=== PATIENT | male | born 1955 | race Caucasian/White ===

== ENCOUNTER 2023-03-09 03:42 | Inpatient (IN) | payer MEDICARE, SELFPAY ==
[2023-03-09] VITALS (57 sets, daily range): BP systolic 100–176; BP diastolic 55–86; PULSE 47–112; RESP 10–20; TEMP 36.3–37.2; O2SAT 84–98; BMI 29.2
[2023-03-09] MEDS: HYDROmorphone 1 mg/mL INJ 1 mL 2 MG IVP ×2 (05:08→18:19)
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
--- NOTE | 2023-03-09 06:57 | P.PN_ITS ---
Subjective Subjective: No change in the status Medications: Medication Review Details: Medication reviewed with [facility] physician Vitals/I&O/Wt Last Vital Signs Temp 98.1 F 03/09/23 04:00 Pulse 73 03/09/23 04:00 Resp 17 03/09/23 05:08 BP 131/71 03/09/23 04:00 Pulse Ox 94 03/09/23 04:00 O2 Del Method Room Air 03/09/23 04:10 03/08/23 03/08/23 03/09/23 14:59 22:59 06:59 Output Total 150 / 150 Balance -150 / -150 Weight last 48 hrs Weight 103.147 kg Physical Exam Narrative: Physical exam unchanged Data Other Labs: Labs reviewed with [facility] physician A&P Assessment and plan (1) Left displaced femoral neck fracture: Plan Patient to go for surgery with Dr. Egan. He is n.p.o. for now He is physically and medically in sound state of health with moderate risk for corrective surgery for left femoral neck fracture Attestations Medical Necessity Statement*: He needs continued hospitalization for more than 2 days post corrective surgery Time Spent in Patient Care: 5 minutes Coding Level of Care Code Acute Code for Chg Fwd Diagnoses Left displaced femoral neck fracture S72.002A Time Spent (min) 5
[2023-03-09 07:36] LABS: Basophils # 0.1 10^3/uL (0.0-0.1); Eosinophils # 0.4 10^3/uL (0.0-0.8); Eosinophils % 4.6 %; Hematocrit 43.4 % (37-53); Lymphocytes # 0.9 10^3/uL (0.8-4.8); Lymphocytes % 11.4 %; Mean Corpuscular HGB Conc 33.2 g/dL (30-55); Mean Corpuscular Hemoglobin 31.7 pg (27-33); Mean Corpuscular Volume 95.6 fl (82-101); Mean Platelet Volume 11.2 fL (7.4-10.4); Monocytes # 0.5 10^3/uL (0.2-0.9); Monocytes % 6.7 %; Neutrophils # 5.91 10^3/uL (1.8-7.7); Neutrophils % 75.9 %; Nucleated Red Blood Cells % 0 %; Platelet Count 107 10^3/cmm (157-399); Red Blood Count 4.54 10^6/uL (3.85-5.65); Red Cell Distribution Width 14.2 % (12.1-15.1); White Blood Count 7.79 10^3/uL (3.29-11.43)
[2023-03-09 07:50] LABS: INR 1.21 (0.8-1.2); Partial Thromboplastin Time 31.6 SECONDS (23.9-36.7)
[2023-03-09 07:55] LABS: Alanine Aminotransferase < 5 U/L (0-41); Alkaline Phosphatase 96 U/L (40-130); Aspartate Amino Transferase 22 U/L (0-40); Blood Urea Nitrogen 12 mg/dL (8-23); Calcium 8.6 mg/dL (8.5-10.5); Carbon Dioxide 24 mmol/L (22-29); Chloride 104 mmol/L (98-107); Glomerular Filtration Rate 96.4 mL/min (90-130); Glucose 108 mg/dL (65-115); Magnesium 1.9 mg/dL (1.7-2.3); Osmolality Calculated 286 mOsm/kg (285-295); Sodium 138 mmol/L (136-145); Total Bilirubin 2.2 mg/dL (0.15-1.2)
[2023-03-09] MEDS: sodium chloride 0.9% 1,000 ML 75 ML IV ×2 (08:08→19:00)
[2023-03-09] MEDS: famotidine 20 mg/2 mL INJ IVP ×2 (08:08→17:35)
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
[2023-03-09 08:49] LABS: Add Urine Microscopic? NO; Charge for UA Resulting for Rev
--- NOTE | 2023-03-09 08:51 | PC.NURSE ---
0826 Pt was taken down to surgery. was informed by departmental secretary to go to outpatient waiting room to wait for the surgery.
[2023-03-09] MEDS: ketorolac 30 mg/mL INJ IVP (08:53)
--- NOTE | 2023-03-09 08:54 | W.PM.OPSUD ---
Surgery/Procedure H&P Update DATE OF PROCEDURE: March 09, 2023 DATE H&P PERFORMED: 03/09/23 CHANGES TO PREVIOUS DOCUMENTATION: None. No change in HPI visit from consult note today this morning. Patient has a valgus impacted femoral neck fracture CT scan reviewed and demonstrates this is amenable alignment for closed reduction percutaneous pinning. Talked about treatment options he understands risk benefits complication alternatives of surgery elects proceed with surgical intervention of the left hip CRPP. All questions answered. Will return to the floor postoperatively. PREOP DIAGNOSIS: Left femoral neck fx PRIMARY INDICATION FOR PROCEDURE: Left femoral neck fracture PLANNED PROCEDURE: Operation Date: 03/09/23 09:30 Proposed Procedures p Left Hip Femoral Neck closed reduction and percutaneous pinning(Left) - Conner Egan DO
[2023-03-09] MEDS: acetaminophen 1,000 MG/100 ML PIGGYBACK 400 MG IV (08:55)
--- NOTE | 2023-03-09 09:01 | ANES.PREANE2 ---
Pre-Anesthetic Assessment Height/Weight: Height 1.88 m Weight 103.147 kg Temp Pulse Resp BP Pulse Ox O2 Del Method 98.2 F 81 16 176/86 92 Room Air 03/09/23 07:54 03/09/23 08:49 03/09/23 08:49 03/09/23 08:49 03/09/23 08:49 03/09/23 08:49 Preop Diagnosis: Left femoral neck fx Operation Date: 03/09/23 09:30 Proposed Procedures p Left Hip Femoral Neck closed reduction and percutaneous pinning(Left) - Conner Egan DO Familial anesthetic complications: None Was Beta Zofia taken within 24 hours: Yes Was Clonidine taken within 24 hours: N/A Last intake: Intake Last Liquid Date 03/08/23 Last Liquid Time 23:59 Last Solid Date 03/07/23 Last Solid Time 23:59 Social Tobacco and No alcohol Exam alert, oriented x 3, clear to auscultation bilaterally and regular rate & rhythm Airway Mallampati: Class II Dentition: chipped CV/HEM Hypertension Hepatic Hepatitis GI Gastroesophageal Reflux Disease Neuropsych parkinsons Anesthetic Plan ASA status: 3 Anesthesia: General Risk of > 500 ml blood loss (7ml/kg in children): No Medications/Allergies Home Medications Medication Instructions Recorded Confirmed Last Taken Type Unable to Assess 03/09/23 03/09/23 Unknown History Allergies Allergy/AdvReac Type Severity Reaction Status Date / Time No Known Allergies Allergy Verified 03/09/23 03:50 Current Medications Generic Name Dose Route Start Last Admin Trade Name Freq PRN Reason Stop Dose Admin Famotidine 20 mg 03/09/23 06:15 03/09/23 08:08 Famotidine 20 Mg/2 Ml Inj IVP 20 mg Q12H TAISHA Administration Hydromorphone HCl 2 mg 03/09/23 04:19 03/09/23 05:08 Hydromorphone 1 Mg/Ml Inj 1 Ml IVP 2 mg Q4H PRN Administration PAIN Sodium Chloride 1,000 mls @ 75 mls/hr 03/09/23 06:15 03/09/23 08:08 Sodium Chloride 0.9% IV 75 mls/hr .[id number] TAISHA Administration Additional Medication Information Medication reviewed with [facility] physician [facility] Anesthesia Medical History (Updated 03/09/23 @ 06:09 by Brii Fleming MD) Cirrhosis of liver Hepatitis Parkinson disease Surgical History (Updated 03/09/23 @ 06:09 by Brii Fleming MD) S/P deep brain stimulator placement Family History Mother Cancer Social History Smoking and tobacco status: never smoked Second hand smoke exposure: No Smoking risk assessment/counseling performed?: No Alcohol intake: former Desire information about alcohol rehabilitation?: No Counseling given: No Substance/Drug Use: current Substance/Drug use frequency: daily Substance/Drug use type: Marijuana Desire information about substance/drug rehabilitation?: No Counseling given: No Lives independently: Yes Household members: spouse Housing: House Marital status: Data Anesthesia 03/09/23 07:17 03/09/23 07:17 Short CBC 03/09/23 Range/Units 07:17 WBC 7.79 (3.29-11.43) 10^3/uL Hgb 14.40 (11.27-16.99) g/dL Hct 43.4 (37-53) % MCV 95.6 (82-101) fl Plt Count 107 L (157-399) 10^3/cmm Neut % (Auto) 75.9 % Neut # (Auto) 5.91 (1.8-7.7) 10^3/uL BMP 03/09/23 07:17 Sodium 138 Potassium 4.0 Chloride 104 Carbon Dioxide 24 BUN 12 Creatinine 0.8 Glucose 108 Calcium 8.6 Liver Function 03/09/23 Range/Units 07:17 Total Bilirubin 2.2 H (0.15-1.2) mg/dL AST 22 (0-40) U/L ALT < 5 (0-41) U/L Alkaline Phosphatase 96 (40-130) U/L Albumin 4.0 (3.5-5.2) g/dL Coags 03/09/23 07:17 PT 15.70 H INR 1.21 H APTT 31.6 Cardiac Studies: No Data to Display
[2023-03-09] MEDS: ceFAZolin 2,000 MG in sodium chloride 0.9% (plus) 50 ML 100 MG IV ×2 (09:10→16:46)
[2023-03-09 09:18] LABS: Urine Appearance Clear (CLEAR); Urine Color Orange (Yellow); pH Urine 5 (5-7)
[2023-03-09 09:19] LABS: Bilirubin Urine 1+ (Negative); Blood Urine Neg (Negative); Glucose Urine UA Norm (Normal); Ketones Urine 1+ (Negative); Leukocyte Esterase Urine Negative (Negative); Nitrate Urine Negative (Negative); Protein Urine Neg (Negative); Urobilinogen Urine 4 mg/dL (Negative)
[2023-03-09] MEDS: ROPivacaine 0.5% SDV 30 mL 50 MG INJECTION (09:57)
[2023-03-09] MEDS: lidocaine 2% INJ 20 mL 10 ML INJECTION (09:59)
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
--- NOTE | 2023-03-09 10:27 | PM.OP2 ---
Brief Operative Note Date of procedure: 03/09/23 Pre-op diagnosis: Left femoral neck fracture Post-op diagnosis: same Procedure Done: Left hip femoral neck closed reduction and percutaneous pinning Surgeon: Conner Egan Estimated blood loss (mL): 5 Complications: none Post-op Plan: Plan: -Hospitalist is on board for medical management -Partial weightbearing as tolerated about 38 to 50% to the operative extremity -Ice as needed for pain and swelling -Encourage knee and hip range of motion as tolerated -PT/OT -Pain control -DVT prophylaxis -Lovenox for blood clot prevention -Leave Silverlon dressings on and in place for 7 days. After this they may be removed you may shower/rinse incisions with warm soapy water, pat dry redress with a dry dressing. Okay to sponge bath/shower with Silverlon dressings as they should be waterproof however if they do get saturated or wet please take these off dry the incision and redressed with a new dry sterile bandage. Condition: stable Disposition: PACU Coding Level of Care Code Acute Code for [facility]
--- NOTE | 2023-03-09 10:27 | PM.OP ---
Operative Report Date of procedure: March 09, 2023 Surgeon: Conner Egan DO Procedure: Post-op diagnosis: Same Procedure done: [Left]?femoral neck closed reduction and percutaneous screw fixation Implants: 6.5 mm x [105]?mm ?partially threaded?cannulated screw 6.5 mm x [95]?mm partially-threaded cannulated screw 6.5 mm x [100]?mm partially-threaded cannulated screw [3]?washers Surgeon: Conner Egan DO Petrophysicist: Parrish Egan PA-C Anesthesia: General Estimated blood loss: [5] mL IV fluids: [500] mL Urine output: [50]?mL Complications: None Findings: See operative report narrative Condition: stable Disposition: floor Brief?History: Patient is a [67]-year-old [male]who sustained a fall had a valgus impacted left femoral neck. Seen in outside facility transferred to [facility] for care. Patient?admitted by hospitalist team medically optimized, orthopedics was consulted For treatment recommendations.?Patient has been medically optimized.? We talked about treatment options given this after CT scan demonstrated an intact anterior cortex in good alignment I feel this would be amendable for closed reduction and percutaneous pinning fixation.? We talked about this in detail as far as risk benefits complication alternatives of surgery understands even potential for possible hardware failure and further surgery.? Understand risk of surgery they agree to proceed with surgical intervention all questions answered. Procedure: Patient seen and evaluated?in the preoperative holding area.? Consent was reviewed and signed with patient.? Operative extremity was marked.? Patient was then seen evaluated by anesthesia once cleared for surgery patient was taken back to the operative suite.? Patient was transported onto the [place] bed after undergoing general anesthetic.? Once properly anesthetized she was then placed onto the [place] bed placed in traction boots.? All bony prominences well-padded patient was appropriate secured to the bed.? Final timeout was performed.? Patient received appropriate preoperative antibiotics as well as preoperative TXA. Prior to prepping and draping, the fractured?hip was then inspected this was found to be on the traction table to be in excellent alignment position amenable for close reduction percutaneous pinning.? At this point time the [left]hip was then prepped and draped in standard orthopedic fashion. I started off with small percutaneous incision after marking the center center position of the femoral neck I started with my inferior and central calcar wire.? Guidepin was then advanced along the inferior border of the neck and advanced to appropriate position into the femoral head across the fracture site.? This was confirmed in multiple orthogonal images to be in appropriate position.? Next I plan for a inverted triangle configuration as result I then subsequently placed next my superior and anterior guidepin in appropriate position and then in parallel fashion placed my posterior and superior guidepin in appropriate position.? This was confirmed to have an excellent inverted triangle positioning on AP and lateral.? I then advanced the wires to appropriate length and then subsequently measured.? I then utilized the cannulated drill bit, Drilled, measured and then subsequently advanced the partially-threaded 6.5 mm x [105]?mm cannulated screw, washer and advanced this with excellent fixation on the inferior and central calcar screw. Next, we did the?Superior and posterior pin,?utilized the cannulated drill bit and subsequently drilled, measured and placed a partially-threaded 6.5 mm x [ 95]?mm partially-threaded cannulated screw with washer.? All 3 screws had excellent fixation and were advanced appropriate depth. ? Lastly attention turned to the?superior and anterior?pin,?I then subsequently used the cannulated drill bit And subsequently drilled,?measured and placed a partially-threaded 6.5 mm x [100]?mm partially-threaded cannulated screw and washer and had excellent fixation.?? At the end the procedure I backed the wires out to have appropriate visualization of the tips of the screws.? I then unlocked the traction boot and took the?hip through range of motion with live fluoroscopic imaging utilizing approach and withdrawal technique and no screws penetrated the joint and fracture site was stable.? This completed the procedure. Guidepins were then subsequently removed wound was then thoroughly irrigated and closed with joss for the small percutaneous sites.? This was then covered with Silverlon dressing.? Patient was then awake from anesthesia and taken to PACU in stable condition.? Patient tolerated procedure without any issues Disposition: Patient taken to PACU in stable condition recovering well.? Will be partial weightbearing 30 to 50% postoperatively.? Dressing on in place will be changed as needed.? DVT prophylaxis.? Pain control.? PT/OT.? Postoperative TXA. Postoperative antibiotics.?Patient will return to the floor.? Internal medicine on board as primary.?
--- NOTE | 2023-03-09 10:32 | PM.PACU ---
PACU note Narrative: Patient is a 67-year-old male that had a left femoral neck fracture and just underwent a left hip femoral neck closed reduction and percutaneous pinning. Pt transferred to PACU in stable condition. dressing is dry. pt is awake delirious and confused. He was trying to get out of bed but was stabilized and contained with hospital staff and security staff member. Pt can wiggle toes and plantarflex and dorsiflex foot. pt able to perform straight leg raise, Femoral nerve intact. Distal pulses are palpable toes are warm and well-perfused. Cap refill is normal and under 2 seconds. Sensation to foot is intact. Pain is controlled. Exam: awake Disposition: discharged
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
[2023-03-09] MEDS: midazolam 1 mg/mL INJ 2 mL 2 MG IVP ×2 (10:49→13:08)
[2023-03-09] MEDS: midazolam 1 mg/mL INJ 2 mL 2 MG (11:06)
[2023-03-09] MEDS: dexmedetomidine 400 MCG in sodium chloride 0.9% (100 ml) 100 ML 8.05 MCG IV (11:20)
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
--- NOTE | 2023-03-09 11:50 | PC.OT ---
OT will hold on eval until 03/10/2023 due to ICU transfer and Code 10 called to this patients room.
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
[2023-03-09 12:34] LABS: Ammonia 69 umol/L (16-60)
--- NOTE | 2023-03-09 12:37 | XRR_ITS ---
PROCEDURE INFORMATION: Exam: XR Left Femur Exam date and time: 03/09/2023 6:57 PM Age: 67 years old Clinical indication: Other: Post op pinning; Prior surgery; Surgery date: Post-operative (0-2 days); Surgery type: Hip pinning today; Patient HX: F/u post op hip pinning; Additional info: Left hip fem neck crpp TECHNIQUE: Imaging protocol: Radiologic exam of the left femur. Views: 2 views. COMPARISON: CR (PELVIS, ) 03/09/2023 6:54 PM FINDINGS: Bones/joints: There are 3 partially threaded screws placed through the left femoral head and neck transfixing a subcapital left hip fracture. Fracture components appear in good alignment and apposition. Hardware is intact. Remainder of visualized osseous structures are unremarkable. Soft tissues: Unremarkable. XR/XR femur LT min 2V* [id number] IMPRESSION: Internally fixed subcapital left hip fracture in good alignment.
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
[2023-03-09] MEDS: LORazepam 2 mg/mL INJ 1 mL ×2 (13:01→13:02)
[2023-03-09] MEDS: LORazepam 2 mg/mL INJ 1 mL IVP ×2 (13:02)
[2023-03-09] MEDS: ziprasidone 20 mg/mL SDV 10 MG IM ×2 (13:03→13:04)
[2023-03-09] MEDS: water for injection-sterile 10 ML 100 ML (13:04)
[2023-03-09 13:06] LABS: Alcohol Level < 10 mg/dL (0-10)
[2023-03-09] MEDS: morphine 4 mg/mL SDV 1 mL IVP (13:06)
[2023-03-09 14:18] LABS: Amphetamines Screen Urine Negative (Negative); Barbiturates Screen Urine Negative (Negative); Benzodiazepines Screen Urine Positive (Negative); Cocaine Screen Urine Negative (Negative); Opiate Screen Urine Positive (Negative); PCP Screen Urine Negative (Negative); THC Screen Urine Positive (Negative)
--- NOTE | 2023-03-09 14:41 | PC.NURSE ---
1100 Recieved patient via bed from surgery, patient resting mostly but occasionally arouses and says profanity and throws covers off of him. Dressing on left hip dry and intact with small amount of bruising near edge of dressing. Iv of NS infusing into right forearm. We had to let him settle down and stop tearing off his monitor leads to reattach leads and monitor vitals. Only complaint was that he want to pee, we continually informed him that he has a catheter and it is draining his urine but makes him feel the need to go, but just cussed us out for not letting him go pee. 1110 Patient setteled down somewhat where I could get monitor leads on him. 1120 Patient aroused and again wanting up to go pee, started pulling off all leads, dislodged IV in right forearm, pulled SCD's off and combative with anyone who tried to stop him from removing all his wires and keep him in bed. 1125 Code 10 called to get assistance in keeping him in the bed. 1135 Dr. Trent at bedside, ordered to just turn the Presedex up to 1.2 as ordered. More anxiety meds ordered. 1150 Patient calming down, did place patient in 4 point restraints as ordered until patient relax down.
--- NOTE | 2023-03-09 14:53 | PC.NURSE ---
[address] via bed with monitor and O2 on at 4l nc. Patient sedated and tolerating movement well. No c/o's. Removed leg restraints.
--- NOTE | 2023-03-09 15:11 | PC.NURSE ---
1300 Read patient rights to him and provided paperwork of 96 hour hold. Attempted to try to call numerous times by two different nurses. Was not allowed to leave a message.
[2023-03-09] MEDS: dexmedetomidine 400 MCG in sodium chloride 0.9% (100 ml) 100 ML 21.46 MCG IV (15:53)
[2023-03-09 17:35] LABS: Thyroid Stimulating Hormone 6.15 uIU/mL (0.27-4.20)
--- NOTE | 2023-03-09 18:30 | PC.NURSE ---
1814 Left hip surgical area is now swollen significantly, very small amout of blood drainage on dressing, marked edge. Called Dr. Parrish Egan and notified, says will come look at it. Notified Dr. Wong, ordered H&H stat. Holding enema.
[2023-03-09 19:11] LABS: Hematocrit 41.8 % (37-53)
[2023-03-09] MEDS: lactulose oral liq 20 gm/30 mL UDC 200 GM PR (20:04)
[2023-03-09 21:09] LABS: Adenovirus Not Detected (NOT DETECT); Chlamydia Pneumoniae Not Detected (NOT DETECT); Coronavirus 229E,HKU1,NL63,OC4 Not Detected (NOT DETECT); Human Metapneumovirus Not Detected (NOT DETECT); Human Rhinovirus/Enterovirus Not Detected (NOT DETECT); Influenza A Not Detected (NOT DETECT); Influenza A H1 Not Detected (NOT DETECT); Influenza A H1-2009 Not Detected (NOT DETECT); Influenza A H3 Not Detected (NOT DETECT); Influenza B Not Detected (NOT DETECT); Mycoplasma Pneumoniae Not Detected (NOT DETECT); Parainfluenza Virus Type 1 Not Detected (NOT DETECT); Parainfluenza Virus Type 2 Not Detected (NOT DETECT); Parainfluenza Virus Type 3 Not Detected (NOT DETECT); Parainfluenza Virus Type 4 Not Detected (NOT DETECT); Respiratory Syncytial Virus A Not Detected (NOT DETECT); Respiratory Syncytial Virus B Not Detected (NOT DETECT); SARS-COV-2 Not Detected (NOT DETECT)
--- NOTE | 2023-03-09 21:12 | PC.NURSE ---
Rectal Tube/Lactulose Enema: Rectal tube inserted @ approximately 1999. See MAR for lactulose administration. Pt is resting in bed, snoring, w/ even/unlabored respirations. Pt opens his eyes to pain and occasionally mumbles.
[2023-03-09] MEDS: enoxaparin 40 mg/0.4 mL Syringe SUBCUT (23:03)
[2023-03-10] VITALS (95 sets, daily range): BP systolic 105–187; BP diastolic 59–97; PULSE 44–100; RESP 10–22; TEMP 37.2; O2SAT 90–97
[2023-03-10] MEDS: ceFAZolin 2,000 MG in sodium chloride 0.9% (plus) 50 ML 100 MG IV (00:31)
[2023-03-10] MEDS: ketorolac 30 mg/mL INJ 15 MG IVP (01:22)
[2023-03-10] MEDS: lactulose oral liq 20 gm/30 mL UDC 200 GM PR ×2 (01:52→10:35)
--- NOTE | 2023-03-10 02:16 | PC.NURSE ---
Pt awoke spontaneously and was able to tell this RN his name and birthday. Pt was reoriented to place and situation. Pt expressed remorse, stating multiple times, I'm sorry I'm so much trouble , I can't believe I acted like that , and please forgive me . Care agreement to trial removal of restraints if pt agrees to not pull at any of this lines. Pt verbalized agreement.
[2023-03-10] MEDS: LORazepam 2 mg/mL INJ 1 mL IVP ×5 (03:14→21:17)
[2023-03-10 05:07] LABS: Basophils % 0.3 %; Eosinophils % 0.1 %; Hematocrit 40.8 % (37-53); Lymphocytes # 0.6 10^3/uL (0.8-4.8); Lymphocytes % 7.6 %; Mean Corpuscular HGB Conc 32.6 g/dL (30-55); Mean Corpuscular Hemoglobin 31.4 pg (27-33); Mean Corpuscular Volume 96.5 fl (82-101); Mean Platelet Volume 11.6 fL (7.4-10.4); Monocytes # 0.5 10^3/uL (0.2-0.9); Neutrophils # 6.42 10^3/uL (1.8-7.7); Neutrophils % 85.7 %; Nucleated Red Blood Cells % 0 %; Platelet Count 70 10^3/cmm (157-399); Red Blood Count 4.23 10^6/uL (3.85-5.65); Red Cell Distribution Width 13.6 % (12.1-15.1); White Blood Count 7.49 10^3/uL (3.29-11.43)
[2023-03-10 05:24] LABS: Alanine Aminotransferase 16 U/L (0-41); Albumin Level 3.3 g/dL (3.5-5.2); Alkaline Phosphatase 80 U/L (40-130); Aspartate Amino Transferase 20 U/L (0-40); Blood Urea Nitrogen 16 mg/dL (8-23); Calcium 8.2 mg/dL (8.5-10.5); Carbon Dioxide 22 mmol/L (22-29); Chloride 109 mmol/L (98-107); Globulin 2.7 g/dL (1.3-4.6); Glomerular Filtration Rate 112.5 mL/min (90-130); Glucose 113 mg/dL (65-115); Osmolality Calculated 292 mOsm/kg (285-295); Sodium 140 mmol/L (136-145)
[2023-03-10 05:26] LABS: Anion Gap 13.3 (5-19); Potassium 4.3 mmol/L (3.5-5.1)
[2023-03-10] MEDS: famotidine 20 mg/2 mL INJ IVP ×2 (05:26→17:34)
[2023-03-10 05:39] LABS: Hepatitis A Antibody IgM Non-Reactive (Nonreactive); Hepatitis B Core AB, Total Non-Reactive (Nonreactive); Hepatitis B Surface AB 3.5 (11.5-1000); Hepatitis B Surface Antigen Non-Reactive (Nonreactive)
[2023-03-10 06:11] LABS: Hepatitis C Virus Antibody Reactive (Nonreactive)
--- NOTE | 2023-03-10 08:23 | PC.NURSE ---
CODE 10 Pt very quickly became agitated and not able to redirect. Pt was yelling at staff accusations that were not reasonable with blunt profanity. Pt was standing, yelling and pulling at all lines and tubes including guadalupe and rectal tube. Pt trying to hit other staff and becoming more aggressive. Code 10 called. Code 10 team responded. Pt was prn ativan and precedex restarted. pt was calmed down by staff. Pt returned to bed.
--- NOTE | 2023-03-10 09:07 | P.PN_ITS ---
Reviewed and agree with PAs assessment and plan. I did see and evaluate patient as well he still on Precedex due to his agitation postoperatively still in the ICU. He still has restraints on plantar-grade at this point time he is unarousable on my examination his hip dressings clean dry and intact his toes are warm well perfused with cap refill less than 2 seconds we will follow sergio ent for an additional day tomorrow and then plan for likely sign off tomorrow. Patient will be partial weightbearing 30 to 50%. Follow-up in the office in 2 weeks. Conner Egan DO Subjective Subjective: Patient is 1 day POD from left femoral neck closed reduction and percutaneous screw fixation. patient is an ICU and is still confused and delirious. They had to call a code 10 last night because patient was getting aggressive. Nurse changed bandage yesterday and applied a pressure dressing over surgical site. No other acute concerns. Vitals/I&O/Wt Last Vital Signs Temp 97.8 F 03/09/23 21:00 Pulse 90 03/10/23 08:00 Resp 15 03/10/23 07:45 BP 108/59 03/10/23 08:00 Pulse Ox 94 03/10/23 08:00 O2 Del Method Room Air 03/10/23 06:30 O2 Flow Rate 2 03/10/23 02:15 03/09/23 03/10/23 03/10/23 22:59 06:59 14:59 Intake Total 576.076 / 682.349 583.397 / 1265.746 Output Total 1000 / 1130 275 / 1405 Balance -423.924 / -447.651 308.397 / -139.254 Weight last 48 hrs Weight 227 lb 6.4 oz Physical Exam Narrative: Patient is alert but seems confused and delirious. He gets agitated and thinks that people are trying to hurt patient while here in the ICU. Further exam limited due to altered mental status. Const: COMMON NORMALS: alert Resp: COMMON NORMALS: normal respiratory effort EFFORT & INSPECTION: No respiratory distress Extremity: NARRATIVE EXTREMITY EXAM: Left hip and lower leg?no obvious deformity and no leg shortening or external rotation seen. Neurovascular intact distally with pedal pulse of 2+, toes are warm and well-perfused and normal cap refill under 2 seconds. Patient can dorsiflex and plantarflex foot. Pressure dressing on and intact Neuro: SENSORIUM/ORIENTATION: Yes alert Urinary Catheter Management: Carmona: Cath Placed During This Visit: yes Reason for Continuing Indwelling Catheter: Accurate Measurement of Urinary Output in Critically Ill Patients Urinary Catheter Date of Insertion: 03/09/23 Urinary Catheter Time of Insertion: 08:35 Data 03/10/23 03:55 03/10/23 03:55 Xray Ortho: My impression: [address] [address] XRay Report Signed Patient: Narendra Carmichael Unit #: [id number] : 1955 Age/Sex: 67 / M ADM Date: 03/09/23 Loc: ICU Room/Bed: [place] [address]: Ruth Valencia MD Ordering Provider/Ordering MD: Conner Egan Date of Service: 03/09/23 Procedure(s): XR femur LT min 2V* [id number] Accession Number(s): [id number] Report Number: [id number] PROCEDURE INFORMATION: Exam: XR Left Femur Exam date and time: 03/09/2023 6:57 PM Age: 67 years old Clinical indication: Other: Post op pinning; Prior surgery; Surgery date: Post-operative (0-2 days); Surgery type: Hip pinning today; Patient HX: F/u post op hip pinning; Additional info: Left hip fem neck crpp TECHNIQUE: Imaging protocol: Radiologic exam of the left femur. Views: 2 views. COMPARISON: CR (PELVIS, ) 03/09/2023 6:54 PM FINDINGS: Bones/joints: There are 3 partially threaded screws placed through the left femoral head and neck transfixing a subcapital left hip fracture. Fracture components appear in good alignment and apposition. Hardware is intact. Remainder of visualized osseous structures are unremarkable. Soft tissues: Unremarkable. XR/XR femur LT min 2V* [id number] IMPRESSION: Internally fixed subcapital left hip fracture in good alignment. ? Dictated By: Kye Brian MD Signed By: Kye Brian MD Signed Date/Time: 03/09/231916 DD/ 56 A&P Assessment and plan (1) Left displaced femoral neck fracture: (2) Acute delirium: Plan Plan: -Hospitalist on board for medical management and acute delirium -Labs and imaging reviewed -Partial weightbearing as tolerated about 30% to 50% to the operative extremity -Walker as needed to assist with ambulation -Ice as needed for pain and swelling -Leave pressure Dressing on -Encourage knee and hip range of motion as tolerated -PT/OT -Pain control -DVT prophylaxis -Lovenox for blood clot prevention We will reevaluate patient tomorrow. Attestations Medical Necessity Statement*: Ongoing care from left femoral neck fracture Coding Level of Care Code Acute Code for Chg Fwd Diagnoses Left displaced femoral neck fracture S72.002A Acute delirium R41.0
--- NOTE | 2023-03-10 09:30 | PC.OT ---
No OT performed per information from ICU nurse stating patient is combative at this time.
[2023-03-10] MEDS: ceFAZolin 2,000 MG in sodium chloride 0.9% (plus) 50 ML 50 MG IV (10:06)
[2023-03-10] MEDS: ziprasidone 20 mg/mL SDV 10 MG IM (10:07)
[2023-03-10] MEDS: water for injection-sterile 10 ML (10:07)
[2023-03-10] MEDS: OLANZapine 5 mg ODT PO (10:08)
[2023-03-10] MEDS: sodium chloride 0.9% 1,000 ML 75 ML IV (10:32)
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
[2023-03-10] MEDS: lactulose oral liq 20 gm/30 mL UDC NG-TUBE ×2 (15:00→21:09)
[2023-03-10] MEDS: HYDROmorphone 1 mg/mL INJ 1 mL 2 MG IVP (15:00)
[2023-03-10] MEDS: acetaminophen 500 mg Tablet 1000 MG PO (17:33)
[2023-03-10] MEDS: calcium carb-vit d 600mg/400unit 1 Tablet 1 EACH PO (17:33)
[2023-03-10] MEDS: mupirocin oint 22 gm 1 APPLIC NASAL (17:34)
--- NOTE | 2023-03-10 19:00 | PC.NURSE ---
NG Tube: NG tube present on arrival to shift in [facility]. Gastric Tube Management added to worklist. X-ray imaging not in chart. Dr. Fleming contacted.
--- NOTE | 2023-03-10 20:12 | PC.NURSE ---
Precedex Titration: Per shift report w/ NIKITA Llamas 400mcg bag of Precedex infused on dayshift and pt was switched to 1000mcg bag of Precedex. On arrival to shift 1000mcg bag of Precedex is running @0.4mcg/kg/hr. MAR titrated for 1900 to reflect 400mcg bag was infused on dayshift and 1000cmg bag is currently running @0.4mcg/kg/hr. See IV Titratable Assessment for Precedex titration.
--- NOTE | 2023-03-10 20:39 | PC.NURSE ---
Crackles in Lungs: Crackles noted in bilateral lungs on assessment. Dr. Fleming notified @2037. New order for 40mg IVP Lasix NOW.
[2023-03-10] MEDS: FUROsemide 10 mg/mL SDV 4mL 40 MG IVP (21:02)
[2023-03-10] MEDS: enoxaparin 40 mg/0.4 mL Syringe SUBCUT (23:01)
--- NOTE | 2023-03-10 23:23 | XRR_ITS ---
PROCEDURE INFORMATION: Exam: XR Chest Exam date and time: 03/11/2023 12:00 AM Age: 67 years old Clinical indication: Device placement; Ng tube; Prior surgery; Surgery date: 6+ months; Surgery type: Pacer; Patient HX: Check S/P ng placement; Additional info: Confirm ng placement TECHNIQUE: Imaging protocol: Radiologic exam of the chest. Views: 1 view. COM[place] [id number] 03/09/2023 12:59 PM FINDINGS: Tubes, catheters and devices: Left-sided stimulator device demonstrated. Lungs: Minimal atelectasis versus nonspecific infiltrate at the left lung base. The lungs are otherwise clear. Pleural spaces: No pleural effusion. No pneumothorax. Heart/Mediastinum: Calcified mediastinal lymph nodes consistent with old granulomatous disease. No cardiomegaly demonstrated. Bones/joints: Degenerative thoracic spine changes. No acute abnormality. XR/XR chest 1V portable [id number] IMPRESSION: 1. Minimal atelectasis versus nonspecific infiltrate at the left lung base. The lungs are otherwise clear. 2. Findings of old granulomatous disease are identified.
[2023-03-10] MEDS: dexmedetomidine 400 MCG in sodium chloride 0.9% (100 ml) 100 ML 10.73 MCG IV (23:48)
[2023-03-11] VITALS (99 sets, daily range): BP systolic 115–181; BP diastolic 65–118; PULSE 48–105; RESP 8–26; TEMP 36.8–37.8; O2SAT 92–99
[2023-03-11] MEDS: acetaminophen 500 mg Tablet 1000 MG PO ×3 (01:02→17:08)
[2023-03-11] MEDS: lactulose oral liq 20 gm/30 mL UDC NG-TUBE ×4 (02:26→22:58)
[2023-03-11] MEDS: morphine 4 mg/mL SDV 1 mL IVP ×2 (02:51→20:03)
[2023-03-11 04:34] LABS: Basophils % 0.6 %; Eosinophils # 0.2 10^3/uL (0.0-0.8); Eosinophils % 4.1 %; Lymphocytes # 0.8 10^3/uL (0.8-4.8); Lymphocytes % 16.1 %; Mean Corpuscular HGB Conc 33.3 g/dL (30-55); Mean Corpuscular Hemoglobin 31.6 pg (27-33); Mean Corpuscular Volume 94.9 fl (82-101); Monocytes # 0.4 10^3/uL (0.2-0.9); Monocytes % 7.1 %; Neutrophils # 3.53 10^3/uL (1.8-7.7); Neutrophils % 71.9 %; Nucleated Red Blood Cells % 0 %; Platelet Count 70 10^3/cmm (157-399); Red Blood Count 4.11 10^6/uL (3.85-5.65); Red Cell Distribution Width 13.7 % (12.1-15.1); White Blood Count 4.91 10^3/uL (3.29-11.43)
[2023-03-11 04:57] LABS: Ammonia 72 umol/L (16-60)
[2023-03-11] MEDS: LORazepam 2 mg/mL INJ 1 mL IVP ×3 (05:04→21:13)
[2023-03-11 05:09] LABS: Alanine Aminotransferase 15 U/L (0-41); Albumin Level 3.4 g/dL (3.5-5.2); Alkaline Phosphatase 75 U/L (40-130); Anion Gap 14.5 (5-19); Aspartate Amino Transferase 20 U/L (0-40); Blood Urea Nitrogen 15 mg/dL (8-23); Calcium 8.2 mg/dL (8.5-10.5); Carbon Dioxide 25 mmol/L (22-29); Chloride 108 mmol/L (98-107); Free T4 Free Thyroxine 1.17 ng/dL (0.82-1.77); Globulin 2.8 g/dL (1.3-4.6); Glomerular Filtration Rate 112.5 mL/min (90-130); Glucose 115 mg/dL (65-115); Osmolality Calculated 300 mOsm/kg (285-295); Potassium 3.5 mmol/L (3.5-5.1); Sodium 144 mmol/L (136-145); T3 Free 3.2 PG/ML (2.0-4.4); Total Bilirubin 1.1 mg/dL (0.15-1.2); Total Protein 6.2 g/dL (6.6-8.7)
[2023-03-11] MEDS: haloperidol inj 5 mg/mL INJ 1 mL 2 MG IVP (05:29)
[2023-03-11] MEDS: HYDROmorphone 1 mg/mL INJ 1 mL 2 MG IVP (05:34)
--- NOTE | 2023-03-11 05:43 | PC.NURSE ---
Aggression: Pt awoke extremely confused and agitated. Pt was kicking his legs out of the bed, pulling at restraints, and screaming that he had been kidnapped. Attempted verbal intervention. Pt continued to scream that he was going home and that we were all bitches . Pt states your holding me against my will and your a sneaky bitch . Asked pt if he was hurting, pt responded, don't you fucking think so . Pain medication given. Security @bedside. See MAR for medication administration.
[2023-03-11] MEDS: sodium chloride 0.9% 1,000 ML 50 ML IV (06:05)
[2023-03-11] MEDS: famotidine 20 mg/2 mL INJ IVP ×2 (06:07→18:19)
[2023-03-11] MEDS: calcium carb-vit d 600mg/400unit 1 Tablet 1 EACH PO ×2 (08:26→18:19)
[2023-03-11] MEDS: multivitamin therapeutic Tablet 1 TAB PO (08:26)
[2023-03-11] MEDS: OLANZapine 5 mg ODT PO ×2 (08:26→17:08)
--- NOTE | 2023-03-11 09:25 | PC.OT ---
Patient medicated this date. Will hold therapy and check tomorrow.
[2023-03-11 10:21] LABS: Erythrocyte Sedimentation Rate 13 mm/hr (0-10)
[2023-03-11 10:23] LABS: C Reactive Protein 32.4 mg/L (0.0-4.9)
[2023-03-11 10:24] LABS: Alcohol Level < 10 mg/dL (0-10)
[2023-03-11 10:30] LABS: Procalcitonin 0.06 ng/mL (0-0.5)
[2023-03-11] MEDS: carbidopa-levodopa 25-100mg Tablet 1 EACH PO ×3 (11:30→23:10)
--- NOTE | 2023-03-11 12:03 | XR_ITS ---
WS: [id number] Exam: XR chest 1V portable [id number] Date/Time of Exam: 03/11/2023 12:03 PM Reason For Exam: fever ams Comparison with the latest exam on the same day at 12:06 a.m. The lungs are clear and fully inflated. No pleural effusions. Normal cardiomediastinal silhouette. An NG tube extends into the stomach. A left-sided neurostimulator noted with leads extending toward the RIGHT and LEFT neck. Bony structures are intact. IMPRESSION: 1. No acute cardiopulmonary finding. No significant change.
--- NOTE | 2023-03-11 12:03 | XR_ITS ---
WS: [id number] Exam: XR KUB portable [id number] Date/Time of Exam: 03/11/2023 12:03 PM Reason For Exam: ams, fever Scattered gas in large and small bowel loops suggesting mild ileus. No sign of acute bowel obstructio n. No free air identified. Organ margins are obscured. An enteric tube is noted in the region of the gastric antrum. Bony elements are intact as visualized. IMPRESSION: 1. Scattered large and small bowel gas suggesting mild ileus. No acute abdominal process is suspected . 2. Enteric tube probably ending in the expected region of the gastric antrum or proximal duodenum.
--- NOTE | 2023-03-11 12:03 | CT_ITS ---
WS: [id number] CT HEAD NONCONTRAST HISTORY: ams TECHNIQUE: Contiguous axial imaging performed through the brain in 2.5 mm imaging. Bone and soft tiss ue windows. Sagittal and coronal reformats reviewed. All CT scans at [facility] use at least one of these dose optimization techniques: automated exposure control; mA and/or kV adjustment per pa tient size (includes targeted exams where dose is matched to clinical indication); or iterative recon struction. DLP: 1333.35 mGy.cm COMPARISON: 03/09/2023. Reidentified are bilateral neural stimulators terminating near the substantia nigra. Bilateral symmet susy placement. No complications. Moderate atrophy and small vessel ischemic disease as noted on the prior study. There is artifact fro m the stimulators to the parenchyma but no acute hemorrhage or sulcal effacement appreciated. No inferior displacement of the cerebellar tonsils. Ventricles: Normal size with no hydrocephalus. Patient is intubated. Paranasal sinuses: As visualized are clear. Mastoid air cells: Well pneumatized. Calvarium and scalp: Bifrontal julio holes for the stimulator placement. IMPRESSION: 1. Stable noncontrast head CT. No edema or acute blood. 2. No change in position of the bilateral neural stimulators terminate near the substantia nigra.
[2023-03-11 14:03] LABS: Bilirubin Urine 1+ (Negative); Blood Urine 2+ (Negative); Glucose Urine UA Norm (Normal); Ketones Urine 1+ (Negative); Nitrate Urine Negative (Negative); Protein Urine Neg (Negative); Specific Gravity, Urine 1.015 (1.005-1.030); Urine Appearance SL Hazy (CLEAR); Urine Color Yellow (Yellow); pH Urine 5 (5-7)
[2023-03-11 14:04] LABS: Add Urine Microscopic? YES; Leukocyte Esterase Urine Trace (Negative); Urobilinogen Urine 8 mg/dL (Negative)
[2023-03-11 14:05] LABS: Bacteria Urine TRACE /hpf; Mucus Urine 1+ /hpf
[2023-03-11 14:06] LABS: Add Urine Culture? No
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
[2023-03-11] MEDS: cefTRIAXone 1,000 MG in sodium chloride 0.9% (plus) 50 ML 100 MG IV (15:45)
[2023-03-11] MEDS: dextrose 5%-sod chloride 0.9% 1,000 ML 75 ML IV (15:45)
--- NOTE | 2023-03-11 17:43 | PC.NURSE ---
Addendum entered by Konstantin Rivera RN 03/11/23 18:36: Shift SUmmary: About an hour after writing the amended note (see below), patient's mental status had greatly improved. He now recognizes his , is calm, and more easily redirected. HOwever, he is still confused and at times pulling at lines and being impulsive. Original Note: Shift SUmmary: Uneventful shift. Patient stayed in bed throughout the day. Precedex weaned off. Mental status has improved compared to previous attempts to wean off of precedex, but still altered. Patient doesn't know where he is, the year, or situation. He will occaisonally answer his name correctly, but usually reacts to any questions with hostility. Occasionally correctly remembers the circumstances that led to his hospitalization. Occaisonally yells out for help saying he has been kidnapped. Does not recognize who is at bedside. Previous days when attempting to wean from precedex he has become violent and was unable to be reasoned with, today he nurse has been able to verbally redirect and though easily agitated, he has not attempted to harm any staff. Patient remains in restraints as he is still a danger to himself, attempting to pull out guadalupe cathers, IVs, monitoring devices, and trying to get out of bed when he is too weak to safely do so. Total urine output has been 400mL. 5 loose bowel movements today.
[2023-03-11 18:46] LABS: Glucose Point of Care 116 mg/dL (70-110)
[2023-03-11 19:36] LABS: Adenovirus Not Detected (NOT DETECT); Chlamydia Pneumoniae Not Detected (NOT DETECT); Coronavirus 229E,HKU1,NL63,OC4 Not Detected (NOT DETECT); Human Metapneumovirus Not Detected (NOT DETECT); Human Rhinovirus/Enterovirus Not Detected (NOT DETECT); Influenza A Not Detected (NOT DETECT); Influenza A H1 Not Detected (NOT DETECT); Influenza A H1-2009 Not Detected (NOT DETECT); Influenza A H3 Not Detected (NOT DETECT); Influenza B Not Detected (NOT DETECT); Mycoplasma Pneumoniae Not Detected (NOT DETECT); Parainfluenza Virus Type 1 Not Detected (NOT DETECT); Parainfluenza Virus Type 2 Not Detected (NOT DETECT); Parainfluenza Virus Type 3 Not Detected (NOT DETECT); Parainfluenza Virus Type 4 Not Detected (NOT DETECT); Respiratory Syncytial Virus A Not Detected (NOT DETECT); Respiratory Syncytial Virus B Not Detected (NOT DETECT); SARS-COV-2 Not Detected (NOT DETECT)
--- NOTE | 2023-03-11 20:20 | PM.PN ---
Subjective Subjective: Patient seen and examined this evening at bedside patient is recovering well. Pressure dressings removed cleaned sterile dry dressings on in place. Patient still in ICU but is more alert and less agitated today. No new issues or complaints at this time. Vitals/I&O/Wt Last Vital Signs Temp 99.3 F 03/11/23 17:30 Pulse 77 03/11/23 18:30 Resp 18 03/11/23 20:03 BP 145/81 03/11/23 18:30 Pulse Ox 96 03/11/23 20:03 O2 Del Method Room Air 03/11/23 18:30 O2 Flow Rate 1 03/11/23 09:30 03/11/23 03/11/23 03/11/23 06:59 14:59 22:59 Intake Total 282.590 / 1681.844 106.304 / 106.304 493.580 / 599.884 Output Total 2600 / 3050 275 / 275 125 / 400 Balance -2317.410 / -1368.156 -168.696 / -168.696 368.580 / 199.884 Physical Exam Narrative: Patient is alert but seems confused and delirious. No agitation today. Still in the ICU. Const: COMMON NORMALS: alert Resp: COMMON NORMALS: normal respiratory effort EFFORT & INSPECTION: No respiratory distress Extremity: NARRATIVE EXTREMITY EXAM: Left hip and lower leg?no obvious deformity and no leg shortening or external rotation seen. Neurovascular intact distally with pedal pulse of 2+, toes are warm and well-perfused and normal cap refill under 2 seconds. Patient can dorsiflex and plantarflex foot. Dressings on in place is clean dry and intact. Patient is able to perform straight leg raise with no pain Neuro: SENSORIUM/ORIENTATION: Yes alert Urinary Catheter Management: Carmona: Cath Placed During This Visit: yes Reason for Continuing Indwelling Catheter: Accurate Measurement of Urinary Output in Critically Ill Patients Urinary Catheter Date of Insertion: 03/09/23 Urinary Catheter Time of Insertion: 08:35 Data 03/11/23 04:20 03/11/23 04:20 Micro: Microbiology 03/11/23 10:10 Blood Culture - Preliminary Blood SPECIMEN COLLECTED 03/11/23 10:05 Blood Culture - Preliminary Blood SPECIMEN COLLECTED A&P Assessment and plan (1) Left displaced femoral neck fracture: (2) Acute delirium: Plan CleanedPlan: -Hospitalist on board for medical management and acute delirium -Labs and imaging reviewed -Partial weightbearing as tolerated about 30% to 50% to the operative extremity -Walker as needed to assist with ambulation -Ice as needed for pain and swelling -Dressing changed and intact -Encourage knee and hip range of motion as tolerated -PT/OT -Pain control -DVT prophylaxis -Lovenox for blood clot prevention Orthopedic surgery team will sign off patient at this time follow peripherally if there is any questions pertaining to patient's care for free to contact orthopedic surgery (Dr. Egan). Orthopedic discharge instructions as well as pain medication DVT prophylaxis in patient's chart for discharge. We will follow-up in the orthopedic office in 2 weeks. Attestations Medical Necessity Statement*: Ongoing care from left femoral neck fracture Coding Level of Care Code Acute Code for Chg Fwd Diagnoses Left displaced femoral neck fracture S72.002A Acute delirium R41.0 Time Spent (min) 15
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
[2023-03-11] MEDS: enoxaparin 40 mg/0.4 mL Syringe SUBCUT (23:12)
[2023-03-12] VITALS (86 sets, daily range): BP systolic 126–181; BP diastolic 66–122; PULSE 55–98; RESP 10–33; TEMP 36.8–37.2; O2SAT 91–99
[2023-03-12] MEDS: haloperidol inj 5 mg/mL INJ 1 mL 2 MG IVP (00:25)
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
[2023-03-12] MEDS: acetaminophen 500 mg Tablet 1000 MG PO ×3 (01:18→17:34)
[2023-03-12] MEDS: lactulose oral liq 20 gm/30 mL UDC NG-TUBE ×4 (03:29→20:26)
[2023-03-12] MEDS: OLANZapine 5 mg ODT PO (03:32)
--- NOTE | 2023-03-12 04:39 | PC.NURSE ---
NIH: Unable to complete NIH scale. Pt was resting w/ eyes closed and appeared calm for the first time this shift. Awoke pt for NIH and pt became agitated extremely quickly, kicking legs out. Pt will no follow commands needed to complete stoke scale at this time.
[2023-03-12] MEDS: dextrose 5%-sod chloride 0.9% 1,000 ML 75 ML IV ×2 (05:08→18:42)
[2023-03-12] MEDS: carbidopa-levodopa 25-100mg Tablet 1 EACH PO ×4 (05:12→23:36)
[2023-03-12] MEDS: famotidine 20 mg/2 mL INJ IVP ×2 (05:15→17:34)
[2023-03-12 05:19] LABS: Basophils # 0.1 10^3/uL (0.0-0.1); Basophils % 1.1 %; Eosinophils # 0.2 10^3/uL (0.0-0.8); Eosinophils % 4.4 %; Hematocrit 37.5 % (37-53); Lymphocytes # 0.9 10^3/uL (0.8-4.8); Mean Corpuscular HGB Conc 32.8 g/dL (30-55); Mean Corpuscular Hemoglobin 31.5 pg (27-33); Mean Corpuscular Volume 95.9 fl (82-101); Mean Platelet Volume 10.6 fL (7.4-10.4); Monocytes # 0.4 10^3/uL (0.2-0.9); Monocytes % 8.1 %; Nucleated Red Blood Cells % 0 %; Platelet Count 66 10^3/cmm (157-399); Red Blood Count 3.91 10^6/uL (3.85-5.65); Red Cell Distribution Width 13.6 % (12.1-15.1); White Blood Count 4.55 10^3/uL (3.29-11.43)
[2023-03-12 05:39] LABS: Alanine Aminotransferase 9 U/L (0-41); Albumin Level 3.2 g/dL (3.5-5.2); Alkaline Phosphatase 82 U/L (40-130); Aspartate Amino Transferase 34 U/L (0-40); Blood Urea Nitrogen 10 mg/dL (8-23); Calcium 7.9 mg/dL (8.5-10.5); Carbon Dioxide 25 mmol/L (22-29); Chloride 107 mmol/L (98-107); Globulin 2.5 g/dL (1.3-4.6); Glomerular Filtration Rate 165.9 mL/min (90-130); Glucose 135 mg/dL (65-115); Magnesium 1.5 mg/dL (1.7-2.3); Osmolality Calculated 289 mOsm/kg (285-295); Sodium 139 mmol/L (136-145); Total Bilirubin 2.1 mg/dL (0.15-1.2); Total Protein 5.7 g/dL (6.6-8.7)
[2023-03-12 05:46] LABS: Anion Gap 10.2 (5-19); Potassium 3.2 mmol/L (3.5-5.1)
[2023-03-12 05:48] LABS: Ammonia 62 umol/L (16-60)
[2023-03-12 05:57] LABS: Slide Review Slide Review Perform
[2023-03-12] MEDS: multivitamin therapeutic Tablet 1 TAB PO (08:40)
[2023-03-12] MEDS: calcium carb-vit d 600mg/400unit 1 Tablet 1 EACH PO ×2 (08:40→17:34)
[2023-03-12] MEDS: magnesium sulfate premix 2 GM/50 ML PIGGYBACK IV (08:41)
[2023-03-12] MEDS: dexmedetomidine 400 MCG in sodium chloride 0.9% (100 ml) 100 ML 13.41 MCG IV (08:42)
[2023-03-12] MEDS: lidocaine 1% 5 ML in potassium chloride premix 100 ML 26.25 ML IV (08:42)
[2023-03-12] MEDS: mupirocin oint 22 gm 1 APPLIC NASAL (08:42)
--- NOTE | 2023-03-12 11:35 | PC.SOCIAL ---
IMM update IMM updated with patient's . Copy Pg 2 at bedside. Verbalized an understanding. Initialled, dated, timed, and placed in chart.
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
[2023-03-12] MEDS: vancomycin 1,500 MG/300 ML PIGGYBACK 200 MG IV ×2 (13:00→20:24)
[2023-03-12] MEDS: meropenem 1,000 MG in sodium chloride 0.9% (plus) 50 ML 100 MG IV ×2 (13:00→20:20)
--- NOTE | 2023-03-12 14:33 | PC.OT ---
Patient still remains not appropriate for OT services
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
[2023-03-12] MEDS: oxyCODONE 5 mg IR Tab/Cap PO (17:33)
--- NOTE | 2023-03-12 19:15 | PC.NURSE ---
Shift summary: Weaned off of precedex. Alert to person, place, time, and situation but still confused. Near end of shift he has been calm and cooperative and restraints were removed. WOrk with PT briefly and was able to stand at the side of the bed.
[2023-03-12] MEDS: enoxaparin 40 mg/0.4 mL Syringe SUBCUT (22:10)
[2023-03-12 23:04] LABS: HEP C RNA Viral Load Quant <1.18 DETECTED Log IU/mL (NOT DETECTED); HEP C RNA Viral Load Quant <15 DETECTED IU/mL (NOT DETECTED)
[2023-03-13] VITALS (19 sets, daily range): BP systolic 150–170; BP diastolic 76–105; PULSE 70–96; RESP 18–38; TEMP 36.4–36.8; O2SAT 94–98
[2023-03-13] MEDS: lactulose oral liq 20 gm/30 mL UDC NG-TUBE ×2 (02:37→08:15)
[2023-03-13] MEDS: meropenem 1,000 MG in sodium chloride 0.9% (plus) 50 ML 100 MG IV (03:01)
[2023-03-13] MEDS: vancomycin 1,500 MG/300 ML PIGGYBACK 200 MG IV (03:45)
[2023-03-13] MEDS: carbidopa-levodopa 25-100mg Tablet 1 EACH PO ×4 (04:36→23:22)
[2023-03-13 05:10] LABS: Basophils % 0.5 %; Eosinophils # 0.4 10^3/uL (0.0-0.8); Eosinophils % 6.4 %; Hematocrit 37.9 % (37-53); Lymphocytes # 0.8 10^3/uL (0.8-4.8); Lymphocytes % 13.2 %; Mean Corpuscular HGB Conc 34.3 g/dL (30-55); Mean Corpuscular Hemoglobin 31.6 pg (27-33); Mean Corpuscular Volume 92.2 fl (82-101); Mean Platelet Volume 10.9 fL (7.4-10.4); Monocytes # 0.5 10^3/uL (0.2-0.9); Monocytes % 8.1 %; Neutrophils % 71.3 %; Nucleated Red Blood Cells % 0 %; Platelet Count 91 10^3/cmm (157-399); Red Blood Count 4.11 10^6/uL (3.85-5.65); Red Cell Distribution Width 13.7 % (12.1-15.1)
[2023-03-13] MEDS: famotidine 20 mg/2 mL INJ IVP (05:19)
[2023-03-13 05:28] LABS: C Reactive Protein 43.9 mg/L (0.0-4.9)
[2023-03-13 05:29] LABS: Alanine Aminotransferase 8 U/L (0-41); Albumin Level 3.2 g/dL (3.5-5.2); Alkaline Phosphatase 94 U/L (40-130); Anion Gap 12.6 (5-19); Aspartate Amino Transferase 29 U/L (0-40); Blood Urea Nitrogen 6 mg/dL (8-23); Calcium 8.3 mg/dL (8.5-10.5); Carbon Dioxide 23 mmol/L (22-29); Chloride 109 mmol/L (98-107); Globulin 2.8 g/dL (1.3-4.6); Glomerular Filtration Rate 134.4 mL/min (90-130); Glucose 110 mg/dL (65-115); Magnesium 1.7 mg/dL (1.7-2.3); Osmolality Calculated 290 mOsm/kg (285-295); Phosphorus 2.5 mg/dL (2.5-4.5); Potassium 3.6 mmol/L (3.5-5.1); Sodium 141 mmol/L (136-145); Total Bilirubin 1.8 mg/dL (0.15-1.2)
[2023-03-13 05:31] LABS: Ammonia 23 umol/L (16-60)
[2023-03-13 05:35] LABS: Procalcitonin 0.07 ng/mL (0-0.5)
[2023-03-13 05:37] LABS: Slide Review Slide Review Perform
--- NOTE | 2023-03-13 07:00 | XR_ITS ---
WS: [id number] Exam: XR chest 1V portable [id number] Date/Time of Exam: 03/13/2023 6:51 AM Reason For Exam: sob Comparison 03/11/2023. The lungs are clear and fully expanded. Normal cardiomediastinal silhouette. No pleural effusions. Fredy ny structures are intact. Again noted is a neurostimulator pack superimposing the region of the LEFT shoulder. An enteric tube appears to enter the stomach but the tip is not visible. IMPRESSION: 1. No acute cardiopulmonary finding. No change.
[2023-03-13] MEDS: mupirocin oint 22 gm 1 APPLIC NASAL ×2 (08:14→18:12)
[2023-03-13] MEDS: multivitamin therapeutic Tablet 1 TAB PO (08:14)
[2023-03-13] MEDS: acetaminophen 500 mg Tablet 1000 MG PO ×2 (08:14→18:07)
[2023-03-13] MEDS: docusate sodium 100 mg Capsule PO ×2 (08:14→18:09)
[2023-03-13] MEDS: calcium carb-vit d 600mg/400unit 1 Tablet 1 EACH PO ×2 (08:14→18:09)
[2023-03-13] MEDS: dextrose 5%-sod chloride 0.9% 1,000 ML 75 ML IV (08:15)
[2023-03-13] MEDS: ketorolac 30 mg/mL INJ 15 MG IVP (09:17)
[2023-03-13 11:33] LABS: Vancomycin Trough 14.8 ug/mL (10-15)
[2023-03-13] MEDS: LORazepam 2 mg/mL INJ 1 mL IVP (12:03)
[2023-03-13] MEDS: oxyCODONE 5 mg IR Tab/Cap PO (12:30)
--- NOTE | 2023-03-13 13:54 | PC.NURSE ---
Jeni: Two wedding bands silver in color removed from pixys and given to at bedside, per patient request. plans to take them home.
--- NOTE | 2023-03-13 15:09 | PC.NURSE ---
Home meds/Transfer: Patient transferred to 2nd floor room 268 with and belongings at bedside. Home meds with to take home. Patient resting in bed with no questions or complaints at time if transfer, remains pleasantly confused. supervisor cigar making machine contacted for diet assistant as plans to return home soon and patient attempts to get out of bed. Chart and meds from bin left with staff at front line supervisor.
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
[2023-03-13] MEDS: LORazepam 2 mg/mL INJ 1 mL 1 MG IM ×2 (17:39→22:08)
[2023-03-13] MEDS: iron polysaccharide complex 150 mg Capsule PO (18:08)
[2023-03-13] MEDS: chlorhexidine gluconate 0.12% Btl 473 mL 30 ML MUCOUS MEM (18:09)
[2023-03-13] MEDS: LORazepam 2 mg/mL INJ 1 mL 1 MG IVP (21:47)
[2023-03-13] MEDS: enoxaparin 40 mg/0.4 mL Syringe SUBCUT (23:22)
[2023-03-14] VITALS (7 sets, daily range): BP systolic 150–180; BP diastolic 74–111; PULSE 68–101; RESP 16–18; TEMP 36.5–37.2; O2SAT 94–97
[2023-03-14] MEDS: acetaminophen 500 mg Tablet 1000 MG PO ×2 (02:24→08:37)
[2023-03-14] MEDS: LORazepam 2 mg/mL INJ 1 mL 1 MG IM ×4 (04:48→23:47)
[2023-03-14 04:56] LABS: Basophils % 0.5 %; Eosinophils # 0.5 10^3/uL (0.0-0.8); Eosinophils % 7.3 %; Hematocrit 38.2 % (37-53); Lymphocytes # 0.9 10^3/uL (0.8-4.8); Lymphocytes % 13.7 %; Mean Corpuscular HGB Conc 34.3 g/dL (30-55); Mean Corpuscular Volume 93.2 fl (82-101); Monocytes # 0.6 10^3/uL (0.2-0.9); Monocytes % 8.7 %; Neutrophils # 4.38 10^3/uL (1.8-7.7); Neutrophils % 69.5 %; Nucleated Red Blood Cells % 0 %; Platelet Count 109 10^3/cmm (157-399); Red Cell Distribution Width 13.9 % (12.1-15.1)
[2023-03-14 05:11] LABS: Ammonia 18 umol/L (16-60)
[2023-03-14 05:20] LABS: Procalcitonin 0.07 ng/mL (0-0.5)
[2023-03-14] MEDS: carbidopa-levodopa 25-100mg Tablet 1 EACH PO ×4 (05:31→23:03)
[2023-03-14 05:33] LABS: Alanine Aminotransferase < 5 U/L (0-41); Albumin Level 3.6 g/dL (3.5-5.2); Alkaline Phosphatase 93 U/L (40-130); Anion Gap 14.6 (5-19); Aspartate Amino Transferase 27 U/L (0-40); Blood Urea Nitrogen 9 mg/dL (8-23); C Reactive Protein 38.3 mg/L (0.0-4.9); Carbon Dioxide 23 mmol/L (22-29); Chloride 107 mmol/L (98-107); Globulin 2.9 g/dL (1.3-4.6); Glomerular Filtration Rate 134.4 mL/min (90-130); Glucose 101 mg/dL (65-115); Magnesium 1.6 mg/dL (1.7-2.3); Osmolality Calculated 291 mOsm/kg (285-295); Phosphorus 3.4 mg/dL (2.5-4.5); Potassium 3.6 mmol/L (3.5-5.1); Sodium 141 mmol/L (136-145); Total Bilirubin 1.8 mg/dL (0.15-1.2); Total Protein 6.5 g/dL (6.6-8.7)
[2023-03-14] MEDS: calcium carb-vit d 600mg/400unit 1 Tablet 1 EACH PO ×2 (08:37→18:17)
[2023-03-14] MEDS: docusate sodium 100 mg Capsule PO ×2 (08:37→18:14)
[2023-03-14] MEDS: iron polysaccharide complex 150 mg Capsule PO ×2 (08:37→18:17)
[2023-03-14] MEDS: lactulose oral liq 20 gm/30 mL UDC PO (08:37)
[2023-03-14] MEDS: multivitamin therapeutic Tablet 1 TAB PO (08:37)
--- NOTE | 2023-03-14 09:36 | FL_ITS ---
WS: [id number] LUMBAR PUNCTURE CLINICAL INFORMATION: ams COMPARISON: None. TECHNIQUE: Informed consent: The procedure and its potential risk and complications were discussed with the sergio ent. Verbal and written consent was obtained. Timeout: A timeout was performed to confirm correct patient, procedure, and site. Patient was prepped and draped in the usual sterile fashion. Lidocaine 1% was used for local anesthes ia. Utilizing fluoroscopic guidance, a 3.5 inch 22-gauge spinal needle was advanced into the subarach noid space at L3-L4 via LEFT oblique sublaminar approach. Free flow of CSF was obtained. 10 cc of CSF was collected and sent the lab for further analysis. Initial CSF was blood-tinged and cleared with a dditional drainage FLUOROSCOPIC TIME: 1min [id number] # of spot films: 1 IMPRESSION: 1. Fluoroscopically guided lumbar puncture. No immediate complications 2. Initial CSF was blood-tinged and cleared with additional drainage
[2023-03-14] MEDS: oxyCODONE 5 mg IR Tab/Cap PO ×2 (11:50→22:21)
--- NOTE | 2023-03-14 12:57 | PC.OT ---
OT TX ATTEMPTED AT 1200. PT LYING IN BED SLEEPING. HE WAKES TO THERAPISTS VOICE AND REPLIES I'M NOT DOING VERY GOOD. YOU DAMN TWERPS KEEP WAKING ME UP EVERY TIME I TURN AROUND . PT HAS NOT EATEN LUNCH AND CURRENTLY DECLINES TO EAT OR GET UP FOR GROOMING. PT LEFT IN BED WITH 1:1 PRESENT IN ROOM. OT TX TO BE ATTEMPTED AGAIN TOMORROW.
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
[2023-03-14 18:17] LABS: Appearance CSF CLEAR (CLEAR); CSF Specific Gravity 1.005; Color CSF COLORLESS (COLORLESS); Pathology Referral Yes
[2023-03-14] MEDS: famotidine 20 mg Tablet PO (18:17)
[2023-03-14 18:23] LABS: Glucose CSF 52 mg/dL (40-70); Total Protein CSF 32 mg/dL (15-45)
[2023-03-14 18:25] LABS: CSF Mononuclear # 0.002 10^3/uL (50-90); Mononuclear WBC CSF % 100 % (50-90); Polynuclear WBC CSF % 0 % (0-10); Red Blood Cell CSF 0 10^3/uL (0-0); White Blood Cell CSF 2 /uL (0-5)
[2023-03-14 18:32] LABS: Cyto Order Verification No Order
--- NOTE | 2023-03-14 20:02 | PC.NURSE ---
Pt became agitated and presented auditory/visual hallucinations, stated They're humiliating me, they keep talking me, I'm sick of it . Attempts to redirect were followed by the patient becoming increasingly agitated and stating Whatever, you are the boss, I guess I'm just helpless. RN administered ativan PRN, see MAR for administration. This nurse offered evening chlorhexidine mouthwash, pt refused stating he's not going to do that right now. Pt repositioned in bed, 2 bed rails up, call light in reach, bed alarm turned on. Pt family member not at bedside.
[2023-03-14] MEDS: enoxaparin 40 mg/0.4 mL Syringe SUBCUT (23:04)
[2023-03-15] VITALS (8 sets, daily range): BP systolic 98–168; BP diastolic 53–91; PULSE 75–99; RESP 16–18; TEMP 36.4–37.1; O2SAT 94–97
[2023-03-15 04:57] LABS: Basophils % 0.8 %; Eosinophils # 0.3 10^3/uL (0.0-0.8); Eosinophils % 5.7 %; Hematocrit 34.9 % (37-53); Lymphocytes # 0.9 10^3/uL (0.8-4.8); Lymphocytes % 17.5 %; Mean Corpuscular HGB Conc 33.5 g/dL (30-55); Mean Corpuscular Hemoglobin 31.5 pg (27-33); Mean Corpuscular Volume 94.1 fl (82-101); Mean Platelet Volume 9.8 fL (7.4-10.4); Monocytes # 0.5 10^3/uL (0.2-0.9); Monocytes % 10.2 %; Neutrophils # 3.44 10^3/uL (1.8-7.7); Neutrophils % 65.2 %; Nucleated Red Blood Cells % 0 %; Platelet Count 109 10^3/cmm (157-399); Red Blood Count 3.71 10^6/uL (3.85-5.65); Red Cell Distribution Width 13.9 % (12.1-15.1); White Blood Count 5.27 10^3/uL (3.29-11.43)
[2023-03-15 05:18] LABS: Ammonia 19 umol/L (16-60)
[2023-03-15 05:19] LABS: Anion Gap 12.3 (5-19); Blood Urea Nitrogen 7 mg/dL (8-23); Calcium 8.1 mg/dL (8.5-10.5); Carbon Dioxide 25 mmol/L (22-29); Chloride 104 mmol/L (98-107); Glomerular Filtration Rate 112.5 mL/min (90-130); Glucose 94 mg/dL (65-115); Osmolality Calculated 284 mOsm/kg (285-295); Potassium 3.3 mmol/L (3.5-5.1); Sodium 138 mmol/L (136-145)
[2023-03-15 05:23] LABS: C Reactive Protein 26.9 mg/L (0.0-4.9); Procalcitonin 0.07 ng/mL (0-0.5)
[2023-03-15] MEDS: diphenhydrAMINE 50 mg/mL SDV 1mL IM (06:37)
[2023-03-15] MEDS: haloperidol inj 5 mg/mL INJ 1 mL 2 MG IM (06:38)
[2023-03-15] MEDS: LORazepam 2 mg/mL INJ 1 mL 1 MG IM (06:38)
[2023-03-15] MEDS: calcium carb-vit d 600mg/400unit 1 Tablet 1 EACH PO ×2 (08:18→17:48)
[2023-03-15] MEDS: acetaminophen 500 mg Tablet 1000 MG PO ×2 (08:18→17:48)
[2023-03-15] MEDS: docusate sodium 100 mg Capsule PO ×2 (08:19→17:48)
[2023-03-15] MEDS: multivitamin therapeutic Tablet 1 TAB PO (08:20)
[2023-03-15] MEDS: iron polysaccharide complex 150 mg Capsule PO ×2 (08:21→17:48)
[2023-03-15] MEDS: lactulose oral liq 20 gm/30 mL UDC PO (08:21)
[2023-03-15] MEDS: amlodipine 10 mg Tablet PO (10:39)
[2023-03-15] MEDS: carbidopa-levodopa 25-100mg Tablet 1 EACH PO ×3 (10:40→22:32)
[2023-03-15] MEDS: oxyCODONE 5 mg IR Tab/Cap PO ×2 (14:37→22:35)
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
[2023-03-15] MEDS: famotidine 20 mg Tablet PO (17:48)
[2023-03-15] MEDS: OLANZapine 5 mg ODT PO (19:59)
[2023-03-15] MEDS: enoxaparin 40 mg/0.4 mL Syringe SUBCUT (22:32)
[2023-03-16] MEDS: acetaminophen 500 mg Tablet 1000 MG PO ×3 (00:01→16:31)
[2023-03-16 04:00] VITALS: BP 150/69; PULSE 96; RESP 18; TEMP 36.8; O2SAT 93
[2023-03-16] MEDS: oxyCODONE 5 mg IR Tab/Cap PO ×2 (04:29→20:50)
[2023-03-16] MEDS: carbidopa-levodopa 25-100mg Tablet 1 EACH PO ×3 (04:29→16:31)
[2023-03-16 05:38] LABS: Basophils % 0.7 %; Eosinophils # 0.3 10^3/uL (0.0-0.8); Eosinophils % 5.5 %; Hematocrit 37.7 % (37-53); Lymphocytes % 17.1 %; Mean Corpuscular Hemoglobin 31.8 pg (27-33); Mean Corpuscular Volume 93.8 fl (82-101); Monocytes # 0.5 10^3/uL (0.2-0.9); Monocytes % 8.7 %; Neutrophils # 3.83 10^3/uL (1.8-7.7); Neutrophils % 67.6 %; Nucleated Red Blood Cells % 0 %; Platelet Count 139 10^3/cmm (157-399); Red Blood Count 4.02 10^6/uL (3.85-5.65); Red Cell Distribution Width 14.2 % (12.1-15.1); White Blood Count 5.66 10^3/uL (3.29-11.43)
[2023-03-16 06:00] LABS: Anion Gap 10.3 (5-19); Blood Urea Nitrogen 7 mg/dL (8-23); Calcium 8.8 mg/dL (8.5-10.5); Carbon Dioxide 29 mmol/L (22-29); Chloride 105 mmol/L (98-107); Glomerular Filtration Rate 112.5 mL/min (90-130); Glucose 99 mg/dL (65-115); Osmolality Calculated 290 mOsm/kg (285-295); Potassium 3.3 mmol/L (3.5-5.1); Sodium 141 mmol/L (136-145)
[2023-03-16 06:01] LABS: Ammonia 25 umol/L (16-60)
[2023-03-16 07:29] VITALS: BP 148/82; PULSE 87; RESP 18; TEMP 36.8; O2SAT 93
[2023-03-16] MEDS: lactulose oral liq 20 gm/30 mL UDC PO (09:06)
[2023-03-16] MEDS: chlorhexidine gluconate 0.12% Btl 473 mL 30 ML MUCOUS MEM ×3 (09:06→16:31)
[2023-03-16] MEDS: potassium chloride ER 20 mEq Tablet 40 MEQ PO (09:06)
[2023-03-16] MEDS: famotidine 20 mg Tablet PO ×2 (09:07→20:49)
[2023-03-16] MEDS: docusate sodium 100 mg Capsule PO ×2 (09:07→17:31)
[2023-03-16] MEDS: amlodipine 10 mg Tablet PO (09:07)
[2023-03-16] MEDS: calcium carb-vit d 600mg/400unit 1 Tablet 1 EACH PO ×2 (09:07→17:31)
[2023-03-16] MEDS: iron polysaccharide complex 150 mg Capsule PO ×2 (09:07→17:31)
[2023-03-16] MEDS: multivitamin therapeutic Tablet 1 TAB PO (09:08)
[2023-03-16 10:58] VITALS: BP 148/81; PULSE 103; RESP 18; TEMP 36.8; O2SAT 94
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
[2023-03-16 16:10] VITALS: BP 152/81; PULSE 121; RESP 19; TEMP 36.3; O2SAT 96
[2023-03-16 20:00] VITALS: BP 157/82; PULSE 96; RESP 17; TEMP 37; O2SAT 94
[2023-03-16] MEDS: enoxaparin 40 mg/0.4 mL Syringe SUBCUT (20:49)
[2023-03-16] MEDS: OLANZapine 5 mg ODT PO (20:49)
[2023-03-17] VITALS: BP 156/83; PULSE 87; RESP 17; O2SAT 98
[2023-03-17] MEDS: carbidopa-levodopa 25-100mg Tablet 1 EACH PO ×3 (00:06→11:33)
[2023-03-17] MEDS: acetaminophen 500 mg Tablet 1000 MG PO ×2 (00:06→08:20)
[2023-03-17 04:00] VITALS: BP 152/76; PULSE 86; RESP 17; TEMP 36.6; O2SAT 95
[2023-03-17 04:09] LABS: Basophils % 0.6 %; Eosinophils # 0.3 10^3/uL (0.0-0.8); Eosinophils % 5.1 %; Hematocrit 34.8 % (37-53); Lymphocytes # 1.1 10^3/uL (0.8-4.8); Lymphocytes % 21.8 %; Mean Corpuscular HGB Conc 33.9 g/dL (30-55); Mean Corpuscular Hemoglobin 32.2 pg (27-33); Mean Corpuscular Volume 95.1 fl (82-101); Mean Platelet Volume 10.3 fL (7.4-10.4); Monocytes # 0.5 10^3/uL (0.2-0.9); Monocytes % 10.5 %; Neutrophils # 3.17 10^3/uL (1.8-7.7); Neutrophils % 61.8 %; Nucleated Red Blood Cells % 0 %; Platelet Count 123 10^3/cmm (157-399); Red Blood Count 3.66 10^6/uL (3.85-5.65); Red Cell Distribution Width 14.2 % (12.1-15.1); White Blood Count 5.13 10^3/uL (3.29-11.43)
[2023-03-17 04:35] LABS: Ammonia 39 umol/L (16-60)
[2023-03-17 04:44] LABS: Anion Gap 11.8 (5-19); Blood Urea Nitrogen 6 mg/dL (8-23); Calcium 8.5 mg/dL (8.5-10.5); Carbon Dioxide 29 mmol/L (22-29); Chloride 108 mmol/L (98-107); Glomerular Filtration Rate 134.4 mL/min (90-130); Glucose 96 mg/dL (65-115); Osmolality Calculated 297 mOsm/kg (285-295); Potassium 3.8 mmol/L (3.5-5.1); Sodium 145 mmol/L (136-145)
[2023-03-17 07:43] VITALS: BP 148/77; PULSE 92; RESP 18; TEMP 36.8; O2SAT 95
[2023-03-17 08:00] VITALS: BP 148/77; PULSE 92; RESP 18; TEMP 36.8
[2023-03-17] MEDS: calcium carb-vit d 600mg/400unit 1 Tablet 1 EACH PO (08:20)
[2023-03-17] MEDS: lactulose oral liq 20 gm/30 mL UDC PO (08:20)
[2023-03-17] MEDS: famotidine 20 mg Tablet PO (08:22)
[2023-03-17] MEDS: multivitamin therapeutic Tablet 1 TAB PO (08:22)
[2023-03-17] MEDS: docusate sodium 100 mg Capsule PO (08:22)
[2023-03-17] MEDS: chlorhexidine gluconate 0.12% Btl 473 mL 30 ML MUCOUS MEM (08:22)
[2023-03-17] MEDS: iron polysaccharide complex 150 mg Capsule PO (08:22)
[2023-03-17] MEDS: amlodipine 10 mg Tablet PO (08:22)
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
[2023-03-17 12:00] VITALS: BP 148/76; PULSE 96; RESP 18; TEMP 36.6; O2SAT 95
[2023-03-17 14:10] VITALS: BP 148/76; PULSE 96; RESP 18; TEMP 36.6; O2SAT 95
--- NOTE | 2023-03-17 15:10 | PC.NURSE ---
discussed discharge paper work, medications, follow up appointments and educated patients on how to give lovenox injection. demonstrated injection back by motion of procedure. Verbalized understanding.
[2023-03-19 17:19] LABS: St. Louis Enceph.Virus IGG CSF <1:1; St. Louis Enceph.Virus IGM CSF <1:1
[2023-03-20 00:39] LABS: HSV 1 DNA NOT DETECTED; HSV 2 DNA NOT DETECTED; HSV Source CEREBROSPINAL FLUID
[2023-03-20 20:49] LABS: Lyme Disease AB (IGG),IBL NO BANDS DETECTED; Lyme Disease AB (IGM), IBL NO BANDS DETECTED
== END 2023-03-17 14:10 | disposition home or self-care (01) | DRG 956 ==
LOC: MEDSURG 10:27 → ICU 11:16 → MEDSURG 03-13 14:57
PROVIDERS: Student in an Organized Health Care Education/Training Program; Admitting Provider Internal Medicine; Visit Provider Family Medicine
PROC: 0QH734Z Insertion of Internal Fixation Device into Left Upper Femur, Percutaneous Approach (ICD-10-PCS; principal; 2023-03-09 09:00)
DX: S72.002A Fracture of unspecified part of neck of left femur, initial encounter for closed fracture (principal); S06.9X0A Unspecified intracranial injury without loss of consciousness, initial encounter; W19.XXXA Unspecified fall, initial encounter; K70.30 Alcoholic cirrhosis of liver without ascites; F10.11 Alcohol abuse, in remission; Z86.19 Personal history of other infectious and parasitic diseases; I10 Essential (primary) hypertension; G20 Parkinson's disease; R41.0 Disorientation, unspecified; V40.0XXA Car driver injured in collision with pedestrian or animal in nontraffic accident, initial encounter; K76.82 Hepatic encephalopathy; Z96.82 Presence of neurostimulator; T42.8X6A Underdosing of antiparkinsonism drugs and other central muscle-tone depressants, initial encounter; Y63.6 Underdosing and nonadministration of necessary drug, medicament or biological substance
CPT/HCPCS: 36415; 36416; 51702; 62328; 70450; 71045; 71250; 72125; 73502; 73552; 74018; 74176; 76000; 80048; 80053; 80202; 80306; 80307; 80503; 81001; 81003; 82140; 82945; 82962; 83735; 84100; 84145; 84157; 84315; 84439; 84443; 84481; 85014; 85018; 85025; 85610; 85651; 85730; 86140; 86617; 86653; 86695; 86696; 86705; 86706; 86709; 86803; 86850; 86900; 87040; 87070; 87075; 87086; 87205; 87340; 87486; 87522; 87530; 87581; 87633; 89050; 92507; 92523; 92526; 92610; 96372; 96376; 97110; 97116; 97162; 97167; 97530; A4570; C1713; J0131; J0690; J0696; J1100; J1170; J1200; J1630; J1650; J1885; J1940; J1953; J2060; J2185; J2250; J2270; J2405; J2704; J2795; J3010; J3370; J3475; J3480; J3486; J3490; J7030; J7042; J7050

== ENCOUNTER → 2023-04-18 11:45 | Outpatient (BNVA) | payer MEDICARE, SELFPAY | PROVIDERS: Visit Provider Physician Assistant | DX: Z98.890 Other specified postprocedural states; Z87.81 Personal history of (healed) traumatic fracture | CPT/HCPCS: 73502; 99024 ==

== ENCOUNTER → 2024-12-17 10:32 | Outpatient (BNVA) | payer MEDICARE, SELFPAY | PROVIDERS: PCP Student in an Organized Health Care Education/Training Program; Visit Provider Physician Assistant | DX: G56.01 Carpal tunnel syndrome, right upper limb (principal); G56.21 Lesion of ulnar nerve, right upper limb | CPT/HCPCS: 73110; 99213 ==

== ENCOUNTER → 2025-01-22 09:27 | Outpatient (BNVA) | payer MEDICARE, SELFPAY | PROVIDERS: PCP Student in an Organized Health Care Education/Training Program; Visit Provider Physician Assistant | DX: S52.592A Other fractures of lower end of left radius, initial encounter for closed fracture (principal); S52.612A Displaced fracture of left ulna styloid process, initial encounter for closed fracture; W19.XXXA Unspecified fall, initial encounter | CPT/HCPCS: 73110 ==

== ENCOUNTER 2025-01-22 10:37 | Outpatient (CLI) | payer MEDICARE, SELFPAY | END 2025-01-22 10:38 | disposition home or self-care (01) | LOC: SPT 10:38 | PROVIDERS: PCP Student in an Organized Health Care Education/Training Program; Visit Provider Physician Assistant | DX: Z46.89 Encounter for fitting and adjustment of other specified devices (principal); S52.502D Unspecified fracture of the lower end of left radius, subsequent encounter for closed fracture with routine healing; X58.XXXD Exposure to other specified factors, subsequent encounter | CPT/HCPCS: 99214; L3982 ==

== ENCOUNTER 2025-01-25 11:30 | Day surgery (SDC) | payer MEDICARE, SELFPAY ==
[2025-01-25] VITALS (11 sets, daily range): BP systolic 139–168; BP diastolic 62–92; PULSE 70–97; RESP 16–20; TEMP 36.1–37.2; O2SAT 92–95; BMI 27.2
--- NOTE | 2025-01-25 | XR_ITS ---
WS: [id number] Left wrist, C-arm fluoroscopy views, 01/25/2025 Clinical Data: OR PICS Comparison: Left wrist, 01/22/2025 Findings: Dr. Egan reduced the distal left radial fracture with a plate and screws. XR/XR wrist LT min 3V* [id number] Impression: Internal fixation of distal left radial fracture.
--- NOTE | 2025-01-25 13:04 | W.PM.OPSUD ---
Surgery/Procedure H&P Update DATE OF PROCEDURE: January 25, 2025 DATE H&P PERFORMED: 01/22/25 H&P UPDATE INFORMATION: I have reviewed H&P completed within last 30 days, I have examined patient prior to procedure and No changes to prior documentation PREOP DIAGNOSIS: Left distal radius fracture PRIMARY INDICATION FOR PROCEDURE: Left distal radius fracture comminuted intra-articular and dorsal angulation PLANNED PROCEDURE: Operation Date: 01/25/25 13:40 Proposed Procedures p LEFT ORIF Distal Radius(Left) - Conner Egan DO
--- NOTE | 2025-01-25 13:43 | ANES.PROC ---
Anesthesia Procedures Procedure/Date: 01/25/25 Left axillary nerve block for postoperative pain control Nerve Block ^: Nerve Block 1: Main Anesthesia: other (100mcg fentanyl) Time Out Performed: Yes Consent: requested by attending/covering physician and from patient Nerve block location: axillary Anesthesia monitors applied: pulse oximetry, EKG, BP cuff and oxygen Nerve block position: supine Anesthetic Used: ropivicaine 0.5% Amount of anesthesia used (mL): 30 Ultrasound used to: recognize landmarks Nerve Stimulator Used?: Yes Interscalene/Femoral BLK: other needle (pjunk 4inch) Injection: neg aspiration of heme Patient Tolerated Procedure: well Complications: none Additional Comments: decadron 4mg added to block
--- NOTE | 2025-01-25 13:44 | ANES.PREANE2 ---
Pre-Anesthetic Assessment Height/Weight: Height 6 ft 2 in Weight 212 lb Temp Pulse Resp BP Pulse Ox O2 Del Method 98.9 F 70 18 148/73 95 Room Air 01/25/25 11:52 01/25/25 11:52 01/25/25 11:52 01/25/25 11:52 01/25/25 11:52 01/25/25 11:52 Preop Diagnosis: Left distal radius fracture Operation Date: 01/25/25 13:40 Proposed Procedures p LEFT ORIF Distal Radius(Left) - Conner Kearny, DO Was Beta Zofia taken within 24 hours: N/A Was Clonidine taken within 24 hours: N/A Last intake: Intake Last Liquid Date 01/25/25 Last Liquid Time 04:00 Last Solid Date 01/24/25 Last Solid Time 16:00 Social No alcohol and No tobacco Exam alert, oriented x 3, clear to auscultation bilaterally and regular rate & rhythm Airway Submandibular: within normal limits Cervical ROM: within normal limits Mallampati: Class III Dentition: full Comments: Comments: Large montelongo Anesthetic Plan ASA status: 3 Anesthesia: General and Regional (specify below) Other: Patient has experienced severe postop delirium requiring prolonged hospitalization. Unaware if this had to do with increased ammonia levels NPO since yesterday evening History of Parkinson's disease, took carbidopa?levodopa today Patient has a brain stimulator in place currently located on the left side History of cirrhosis, on lactulose Plan for general anesthesia with preop nerve block Medications/Allergies Home Medications ?Medication ?Instructions ?Recorded ?Confirmed ?Last Taken ?Type carbidopa 25 mg-levodopa 100 mg 1 tab PO .FOUR TIMES DAILY 04/18/23 01/22/25 01/25/25 History tablet Left Volar Fast Form Splint #1 ea 01/22/25 01/22/25 Unknown Rx lactulose 10 gram/15 mL oral 15 ml PO DIRECTED 01/22/25 01/25/25 Unknown History solution hydrocodone 5 mg-acetaminophen 325 1 tab PO PRN 01/25/25 01/25/25 01/23/25 History mg tablet hydrocodone 5 mg-acetaminophen 325 1 tab PO Q6H PRN pain 5 days #20 01/25/25 Unknown Rx mg tablet tabs pramipexole 0.5 mg tablet 0.5 mg PO BEDTIME 01/25/25 01/25/25 Unknown History Allergies Allergy/AdvReac Type Severity Reaction Status Date / Time No Known Allergies Allergy Verified 01/22/25 09:43 Current Medications Generic Name Dose Route Start Last Admin Trade Name Olive PRN Reason Stop Dose Admin Sodium Chloride 1,000 mls @ 30 mls/hr 01/25/25 11:45 01/25/25 12:36 Sodium Chloride 0.9% IV 01/26/25 11:44 30 mls/hr .Q24H TAISHA Administration PFS Anesthesia Medical History (Updated 01/22/25 @ 10:10 by KERRIE Reyes) Cirrhosis of liver Hepatitis Parkinson disease Surgical History S/P deep brain stimulator placement Family History Mother Cancer Social History Smoking and tobacco/nicotine status: current some day tobacco/nicotine user Second hand smoke exposure: No Alcohol intake: former Substance/Drug Use: current Substance/Drug use frequency: daily Lives independently: Yes Household members: spouse Housing: House Marital status:
[2025-01-25] MEDS: ceFAZolin 2,000 MG in sodium chloride 0.9% (plus) 50 ML 100 MG IV (14:27)
--- NOTE | 2025-01-25 16:10 | P.BOP_ITS ---
Date of Procedure: 01/25/2025 Surgeon: Conner Egan DO Mechanic Assistant(s): Parrish Egan PA-C Procedure(s) performed: Left distal radius open reduction internal fixation (4-part intra-articular) Findings of the procedure(s): Patient underwent procedure as planned without issues or complications Estimated blood loss: 10 mL Specimen(s) removed: None Post-operative diagnosis: Left distal radius fracture four-part intra-articular
--- NOTE | 2025-01-25 16:12 | PM.OP ---
Operative Report Date of procedure: January 25, 2025 Surgeon: Conner Egan DO Mental Tester: Parrish Egan PA-C: PA was necessary for assistance in this case with hand positioning to execute the procedure, assistance with reduction as well as assistance with instrumentation for fracture fixation, retraction and protection of neurovascular structures as well as to assist with wound closure and dressing application. Procedure: Preop Diagnosis ?Left?distal?radius?fracture ? Procedure: Post-op diagnosis: Same, 4 part intra-articular Procedure done: Left?distal?radius?open reduction internal fixation, 4-part intra-articular Implants: ?Arthrex left 5-hole standard volar locking plate Combination of locking and nonlocking screws 2.7 mm?distal Combination of locking and nonlocking screws 3.5 mm proximal Surgeon: Conner Egan DO Anesthesia: General and nerve Block (Regional) Estimated blood loss: 10 mL Tourniquet time: 48 minutes IV fluids: 800 mL Complications: None Findings: See operative report narrative Condition: stable Disposition: same day Brief History: Patient is a 69-year-old male who presented to office for a oteib-ssjcgnkqq-zlqesryik left?distal?radius?fracture.? Patient has significant comminution and shortening as well as dorsal angulation patient active and at this point time through shared decision making patient like to proceed with a left?distal?radius?ORIF.? We had a detailed discussion in the office about nonoperative and operative intervention.? At this point time I feel through shared decision? best option would be open reduction internal fixation patient is active and already has a considerable deformity. Of note further history reveals patient had had a previous distal radius fracture years ago that was treated nonoperatively. Per the patient and they are was no deformity after this fracture, which she has today.?? As result through shared decision making patient would like to proceed with ORIF left?distal?radius?fracture.? Detail the risk benefits complication alternatives to treatment option.? Understanding risk for surgery patient elects to proceed with surgical intervention.? All questions been answered at this time. Procedure: Patient seen and evaluated in the preoperative holding area.? Consent reviewed and signed with patient.? Correct extremities were marked and consent was reviewed and signed.? Patient was seen and evaluated by anesthesia department.? Underwent regional anesthesia. Once cleared for surgery pt was taken back to the operative suite.? Patient was then transported into the operative suite and kept on the OR gurney, all bony prominences well-padded patient was appropriate secured to bed in supine position.? An armboard was applied to the left upper extremity.? The left upper extremity had a nonsterile tourniquet applied.? Patient subsequently was then prepped and draped in standard orthopedic fashion she underwent anesthesia per the anesthesia department.? A final timeout was performed.? Patient received appropriate preoperative antibiotics. Esmarch was used exsanguinate the left upper extremity and tourniquet was insufflated to 250 mmHg. A standard modified FCR volar approach was performed to the left?distal?radius.? Sharp scalpel incision through skin and subcutaneous tissue.? I then switched to Littler dissection scissors identify the FCR tendon releases out of the sheath both proximally and?distally mobilized the tendon ulnarly and then subsequently incised the floor of the FCR tendon sheath with care to just incise the floor.? I then bluntly sweep the FPL tendon muscle belly ulnarly and placed blunt self-retaining retractor.? At this point time I direct visualization of the pronator quadratus which was incised in standard L fashion off the radial and?distal?border in the?distal?radius?and fracture site was scraped clean of interposed muscle belly.? I then identified the 4 part intra-articular?distal?radius?fracture.? Of note patient did have significant changes in the distal radius morphology just due to having a previous distal radius fracture that was treated with closed treatment. He had a considerably more prominent and an remodeled volar lip. On visualization patient had a significant dorsal angulation. Also patient had a fracture line that was in the 4 part intra-articular but did have proximal extension with a longitudinal fracture line that subtly seen on x-ray but this tracks approximately in the metaphyseal region and is incomplete. This was subsequently opened above and freed of interposing muscle belly as well as periosteum and fracture hematoma.? I did have to utilize my [place] which was placed through the fracture pattern and disengage the fracture and performed manual manipulation and anatomic reduction of the?distal?radius?fracture.? ?Once satisfied with reduction and had appropriate anatomic reduction of the volar cortex.? This was confirmed with mini C arm in multiple orthogonal imaging.? At this point time? I selected a Arthrex anatomic?distal?radius?plate utilizing a standard 5-hole plate which would have appropriate spread?distally.? I utilized a 5 hole plate as this would allow me 3-4 screws proximal to the incomplete fracture line. Prior to placing screws I did place a lobster-claw clamp and a radial to ulnar fashion to continually keep reduction of the longitudinal split. This was then placed up to the?distal?radius?while maintaining my reduction, pins were placed?distally and proximally to confirm appropriate placement of the plate along the?distal?radius.? Minor adjustments were made and once I was satisfied I then subsequently drilled a bicortical 3.5 screw proximally in the oblong hole to allow for appropriate sliding of the?distal?radius?plate appropriately to perfect position on the?distal?radius.? This had excellent fixation and purchase and brought the plate to bone.? While maintaining my reduction I then confirmed in multiple orthogonal imaging that my plate was in appropriate position.? Once satisfied with my position I then subsequently placed the peFocus targeting guide on the?distal?locking screws with Arthrex.? The locking guide was then subsequently loaded and I subsequently drilled and placed a fully threaded cortical screw to compress the plate to bone for the?distal?fracture fragment.? This was performed with plan to then remove this and placed a shorter locking screw had bicortical fixation with excellent purchase and appropriate reduction of my volar tilt and bringing plate to bone of the?distal?fragment and plate.? Once I was satisfied with my plate position as well as reduction of the?distal?radius?which was confirmed on AP oblique and lateral imaging I then subsequently drilled measured and placed 4 locking screws around this cortical screw.? Then I subsequently removed the cortical screw and placed a shorter locking screw that did not penetrate the dorsal cortex.?? This completed my?distal?fixation.? I did utilize mini C arm to confirm appropriate placement of the screws these were all within the?distal?radius?and no joint involvement within the radiocarpal joint or the DRUJ.? These had appropriate subchondral support and maintenance of reduction and fixation of the?distal?radius?fracture.? ?I then turned my attention proximally. I placed my most proximal screw as a cortical screw and then placed 2 more additional screws. And then I screwed in the locking guides for my final to screws proximally these were then subsequently drilled measured and appropriate length locking screws were then placed proximally with excellent fixation and locking technology into the plate.? This completed my construct.? The peek guide was subsequently removed and final imaging of the left?distal?radius?open reduction internal fixation was taken of AP lateral as well and is orthogonal imaging.? I then took a inclination view which showed my radial styloid screw was out of the penetration of the joint.? All my?distal?screws were appropriate length did not penetrate dorsal cortex and did not penetrate the joint.? This completed my fixation.? Smooth wrist range of motion was then noted with no evidence of clicking. Wrist was then taken through pronation supination and stressed the DRUJ which was found to be stable.? The wound was then thoroughly irrigated.? Tourniquet was then subsequently deflated.? Hemostasis satisfactory with bipolar electrocautery.? I then subsequently placed interrupted 3-0 Vicryl sutures for subcutaneous tissue and then subsequently placed a nylon the skin for closure.? Incision was then dressed with Xeroform 4 x 4's Kerlix cast padding and a volar Ortho-Glass splint was then applied with Osmin wrap and placed in a sling.? Disposition: Patient taken to PACU in stable condition recovering well receive appropriate discharge instructions as well as pain medication postoperatively.? Maintain splint until follow-up.? Nonweightbearing to operative upper extremity We will follow-up with Ortho in the office in 2 weeks.? If any questions or concerns feel free to contact the office.
--- NOTE | 2025-01-25 16:26 | PM.PACU ---
PACU note Narrative: Patient is a 69-year-old male who just underwent a left wrist ORIF. Patient transferred to PACU in stable condition. Pain is well controlled. Dressing on hand is dry and in place. Patient's fingers are warm and well-perfused. Unable to perform any further assessment on sensation or motor due to residual nerve block. Exam: awake Disposition: discharged
[2025-01-25] MEDS: HYDROcodone-acetaminophen 5-325 mg Tablet 1 TAB PO (17:16)
--- NOTE | 2025-01-25 17:55 | ANE.PACU2 ---
Inpatient post-anesthesia follow up: Airway intact: Yes Vital signs: Temperature 98.1 F Pulse Rate 86 Respiratory Rate 16 Blood Pressure 154/80 Pulse Oximetry 94 Oxygen Delivery Me thod Room Air Oxygen Flow Rate 2 Fraction of Inspir ed Oxygen Hydration adequate: Yes Nausea and vomiting: No Pain level: 1 Mental status: Baseline
== END 2025-01-25 17:55 | disposition home or self-care (01) ==
PROVIDERS: PCP Student in an Organized Health Care Education/Training Program; Visit Provider Student in an Organized Health Care Education/Training Program
PROC: (CPT 25609; principal; 2025-01-25 13:30)
DX: S52.502A Unspecified fracture of the lower end of left radius, initial encounter for closed fracture (principal); W19.XXXA Unspecified fall, initial encounter; G20.A1 Parkinson's disease without dyskinesia, without mention of fluctuations; Z96.82 Presence of neurostimulator; K74.60 Unspecified cirrhosis of liver; K21.9 Gastro-esophageal reflux disease without esophagitis; F17.200 Nicotine dependence, unspecified, uncomplicated
CPT/HCPCS: 25609; 64415; 73110; 76000; C1713 ×2; J0330; J0690; J1100; J2405; J2704; J3010; J3490; J7030; J9999

== ENCOUNTER → 2025-02-10 10:36 | Outpatient (BNVA) | payer MEDICARE, SELFPAY | PROVIDERS: PCP Student in an Organized Health Care Education/Training Program; Visit Provider Physician Assistant | DX: S52.502D Unspecified fracture of the lower end of left radius, subsequent encounter for closed fracture with routine healing (principal); X58.XXXD Exposure to other specified factors, subsequent encounter; Z98.890 Other specified postprocedural states; Z46.89 Encounter for fitting and adjustment of other specified devices | CPT/HCPCS: 73110 ==

== ENCOUNTER 2025-02-10 11:17 | Outpatient (CLI) | payer MEDICARE, SELFPAY | END 2025-02-10 11:18 | disposition home or self-care (01) | LOC: SOT 11:18 | PROVIDERS: PCP Student in an Organized Health Care Education/Training Program; Visit Provider Physician Assistant | DX: Z46.89 Encounter for fitting and adjustment of other specified devices (principal); S52.502A Unspecified fracture of the lower end of left radius, initial encounter for closed fracture; X58.XXXA Exposure to other specified factors, initial encounter | CPT/HCPCS: 97760; 99024; L3906 ==

== ENCOUNTER → 2025-03-03 10:10 | Outpatient (BNVA) | payer MEDICARE, SELFPAY | PROVIDERS: PCP Family Medicine; Visit Provider Physician Assistant | DX: Z98.890 Other specified postprocedural states (principal); Z87.81 Personal history of (healed) traumatic fracture | CPT/HCPCS: 73110; 99024 ==

== ENCOUNTER → 2025-05-04 08:35 | Outpatient (BNVA) | payer MEDICARE, SELFPAY | PROVIDERS: PCP Family Medicine; Visit Provider Physician Assistant | DX: Z47.89 Encounter for other orthopedic aftercare (principal); Z87.81 Personal history of (healed) traumatic fracture; Z46.89 Encounter for fitting and adjustment of other specified devices | CPT/HCPCS: 73110; 99213 ==